=== PATIENT | male | born 1980 | race Caucasian/White ===

== ENCOUNTER 2017-01-22 04:34 | Emergency (ER) | payer BC ==
[2017-01-22] MEDS: Sodium Chloride 0.9% 10 ML Syringe FLUSH PRN ×4 (04:37→05:03)
[2017-01-22] MEDS ORDERED: Ticagrelor 90 MG Tab PO ONE (04:37)
[2017-01-22] MEDS ORDERED: Famotidine 20 MG/2 ML SDV IVPUSH ONE (04:37)
[2017-01-22] MEDS ORDERED: Aspirin 81 MG Tab.Chew CHEW ONE (04:37)
--- NOTE | 2017-01-22 04:37 | EDM.PDOC ---
ED HPI GENERAL MEDICAL PROBLEM - General Chief Complaint: Chest Pain Stated Complaint: heart racing Time Seen by Provider: 01/22/17 04:37 Source of Information: Reports: Patient, Old Records ([facility] chart/EMR) History Limitations: Reports: No Limitations - History of Present Illness INITIAL COMMENTS - FREE TEXT/NARRATIVE: The patient was brought to the emergency room via transport vehicle from [facility] for evaluation of sudden onset tachycardia and 6/10 retrosternal chest pressure/ pounding with symptoms starting at about 4 AM this morning. The patient refused ambulance transfer at his workplace. The patient denies any dizziness, orthostasis, orthopnea, diaphoresis, paresthesias, recent decreased exercise tolerance, or any other anginal-type symptoms. He does have a distant history of probable PSVT as below, however no known previous history of hypertension, other cardiac disease, etc. He has not taken any medications for his symptoms to this point. No recent history of abdominal pain, heartburn, nausea, diarrhea , melena, gross hematochezia, or any food intolerance, including fatty foods, etc.. The patient also denies any recent fever, cough, wheezing, dyspnea, etc.. No history of recent headaches, visual changes, diplopia, change in mental status, or other change in neurological status. Onset: Today, Sudden Onset Date: 01/22/17 Onset Time: 04:00 Duration: Constant Location: Reports: Chest. Denies: Head, Face, Neck, Abdomen, Back, Upper Extremity, Left, Upper Extremity, Right, Radiates to Quality: Reports: Same as Previous Episode, Other (As above) Severity: Moderate Improves with: Reports: None Worsens with: Reports: None Context: Reports: Other (As above) Associated Symptoms: Reports: Chest Pain. Denies: Cough, cough w sputum, Diaphoresis, Fever/Chills, Headaches, Loss of Appetite, Malaise, Nausea/Vomiting , Seizure, Shortness of Breath, Syncope, Weakness Treatments FLOAT TENDER: Reports: Other (see below) (None) Middle Chest Pain Score (Numeric/FACES): 6 - Related Data Allergies Allergy/AdvReac Type Severity Reaction Status Date / Time acetaminophen Allergy Excitabilit Verified 01/22/17 04:46 [From Darvocet-N 100] y propoxyphene Allergy Excitabilit Verified 07/25/17 04:46 [From Darvocet-N 100] y Past Medical History HEENT History: Reports: Impaired Vision, Retinal Detachment, Other (See Below). Denies: Allergic Rhinitis, Cataract, Glaucoma, Hard of Hearing, Macular Degeneration Other HEENT History: Patient wears reading glasses, history of possible diabetic retinopathy with bilateral retinal detachments requiring laser treatment as below Cardiovascular History: Reports: Arrhythmia, Heart Failure, Other (See Below). Denies: Afib, Aneurysm, Blood Clots/VTE/DVT, CAD, Heart Murmur, High Cholesterol , Hypertension, ID, Syncope Other Cardiovascular History: History of probable PSVT in 2001, complete right bundle branch block, short IL interval, borderline CHF, and d-dimer elevation on 07/16/12 with no apparent further workup despite transfer to [place] at that time? Respiratory History: Reports: None. Denies: Asthma, COPD, Intubation, Previous , PE, Pneumothorax, Sleep Apnea Gastrointestinal History: Reports: None. Denies: Celiac Disease, Cholelithiasis , Chronic Constipation, Chronic Diarrhea, Gastritis, GERD, GI Bleed, Hepatitis, Hiatal Hernia, Inflammatory Bowel Disease, Irritable Bowel Syndrome, Jaundice, Pancreatitis Genitourinary History: Reports: Chronic Renal Insuffiency, Diabetic Nephropathy. Denies: Acute Renal Failure, Dialysis, Prostate Disorder, Renal Calculus, STD, Urinary Incontinence, UTI, Recurrent Musculoskeletal History: Reports: Fracture, Other (See Below). Denies: Arthritis, Back Pain, Chronic, Gout, Neck Pain, Chronic, Osteoarthritis, RA, SLE Other Musculoskeletal History: Left forearm fracture requiring surgery as below Neurological History: Reports: None. Denies: Cerebral Aneurysms, Concussion, CVA, Headaches, Chronic, Head Trauma, Migraines, Neuropathy, Diabetic, Neuropathy, Peripheral, Parkinson's, Seizure, TIA Psychiatric History: Reports: None. Denies: Abuse, Victim of, ADD, ADHD, Addiction, Anxiety, Depression, Psych Hospitalization(s), PTSD, Suicide Attempt , Suicidal Ideation Endocrine/Metabolic History: Reports: Diabetes, Type I, IDDM. Denies: Hypothyroidism Hematologic History: Reports: None. Denies: Anemia, Blood Transfusion(s), Iron Deficiency Immunologic History: Reports: None. Denies: AIDS, HIV, SLE Oncologic (Cancer) History: Reports: None. Denies: Basal Cell Carcinoma, Leukemia, Lymphoma, Malignant Melanoma, Non-Hodgkin's Lymphoma, Squamous Cell Carcinoma Dermatologic History: Reports: None. Denies: Eczema, Psoriasis - Infectious Disease History Infectious Disease History: Reports: None. Denies: C-Difficile, Chicken Pox, Measles, Meningitis, Mononucleosis, MRSA, Mumps, Rheumatic Fever, Rubella, Scarlet Fever, Shingles, VRE - Past Surgical History Head Surgeries/Procedures: Reports: None HEENT Surgical History: Reports: Detached Retina, Laser Surgery, Oral Surgery. Denies: Adenoidectomy, Cataract Surgery, Myringotomy w Tube(s), Tonsillectomy Cardiovascular Surgical History: Reports: None. Denies: Cardiac Ablation, Varicose, Vascular Surgery Respiratory Surgical History: Reports: None. Denies: Thoracentesis GI Surgical History: Reports: None. Denies: Appendectomy, Cholecystectomy, Colonoscopy, EGD, Hernia, Abdominal, Hernia, Inguinal, Hernia Repair/Other Male Surgical History: Reports: Circumcision, Other (See Below). Denies: Vasectomy Other Male Surgeries/Procedures: Circumcision as an infant Endocrine Surgical History: Reports: None Neurological Surgical History: Reports: None. Denies: C-Spine, Discectomy, Laminectomy, Lumbar Spine, Vertebroplasty Musculoskeletal Surgical History: Reports: Arthroscopic Knee, Arthroscopic Procedure, ORIF, Other (See Below). Denies: Carpal Tunnel, Ganglion Cyst Other Musculoskeletal Surgeries/Procedures:: bilateral arthroscopic knee surgery with probable meniscal repairs in 2006, ORIF of her right forearm fracture on 04/15/12 Oncologic Surgical History: Reports: None Dermatological Surgical History: Reports: None - Past Imaging History Past Imaging History: Reports: Stress Testing (Cardiac stress test in 2001) Social & Family History - Family History HEENT: Reports: None Cardiac: Reports: None. Denies: Afib, AICD, Aneurysm, Arrhythmia, Blood Clots/ VTE/DVT, CAD, High Cholesterol, Hypertension, ID, Syncope Respiratory: Reports: None. Denies: Asthma, COPD, PE, Pneumothorax, Sleep Apnea GI: Reports: None. Denies: Celiac Disease, Cholelithiasis, Colon Polyps, GERD, GI bleed, Inflammatory Bowel Disease, Irritable Bowel Syndrome, PUD : Reports: None. Denies: Dialysis, Renal Calculus, Renal Disease/ Insufficiency OBGYN: Reports: None Musculoskeletal: Reports: None. Denies: Gout, RA, SLE Neurological: Reports: None. Denies: Alzheimers Disease, Cerebral Aneurysms, CVA, Dementia, Migraines, MS, Parkinson's, Seizure, TIA Psychiatric: Reports: None. Denies: Abuse, Victim of, ADD, ADHD, Anxiety, Depression, Psych Hospitalization(s), PTSD, Suicide Attempt Endocrine/Metabolic: Reports: Diabetes, type II, IDDM, Other (See Below). Denies: Hypothyroidism Other Endocrine/Metabolic Family History: IDDM in maternal and paternal grandmothers Hematologic: Reports: None. Denies: Anemia, Transfusion Reaction Immunologic: Reports: None. Denies: AIDS, HIV, SLE Dermatologic: Reports: None. Denies: Eczema, Psoriasis Oncologic: Reports: None. Denies: Colon, Hodgkin's Lymphoma, Leukemia, Lymphoma , Non-Hodgkin's Lymphoma, Prostate, Skin - Tobacco Use Smoking Status *Q: Current Every Day Smoker Tobacco Use Within Last Twelve Months: Cigarettes Years of Tobacco use: 18 Packs/Tins Daily: 1 (Started smoking at age 18 with maximum use 2 packs per day) Used Tobacco, but Quit: No Smoking Cessation Information Provided To Patient: Yes Second Hand Smoke Exposure: No Second Hand Smoke Education Provided: No - Caffeine Use Caffeine Use: Reports: Soda (6 sodas per day). Denies: Coffee, Energy Drinks, Tea - Alcohol Use Alcohol Use History: Yes Days Per Week of Alcohol Use: 0 (No previous DWIs, problems with alcohol abuse, etc.) Number of Drinks Per Day: 6 (Usually beer about once per month) Total Drinks Per Week: 0 Alcohol Use in Last Twelve Months: Yes Alcohol Use Frequency: Socially - Recreational Drug Use Recreational Drug Use: No Drug Use in Last 12 Months: No Recreational Drug Type: Denies: Amphetamines (Speed), Cocaine, Heroin, Inhalants (Glues, Solvents, Aerosols), LSD (Acid), Marijuana/Hashish, Methamphetamine, Morphine - Living Situation & Occupation Living situation: Reports: Single (No children), Alone 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 Denies: Fever, Chills, Weakness, Fatigue , Night Sweats, Diaphoresis, Decreased Appetite, Weight Loss HEENT: Reports: No Symptoms. Denies: Contact Lenses, Dental Pain, Ear Pain, Glasses, Throat Pain, Vertigo Respiratory: Reports: No Symptoms. Denies: Shortness of Breath, Wheezing, Pleuritic Chest Pain, Cough Cardiovascular: Reports: Chest Pain, Blood Pressure Problem, Palpitations. Denies: Dyspnea on Exertion, Edema, Lightheadedness, Orthopnea, Syncope Endocrine: Reports: High Glucose GI/Abdominal: Reports: No Symptoms. Denies: Abdominal Pain, Anorexia, Black Stool, Bloody Stool, Constipation, Diarrhea, Decreased Appetite, Difficulty Swallowing, Distension, Flatus, Hematochezia, Melena, Mucous in Stool, Nausea, Vomiting : Reports: No Symptoms. Denies: Dysuria, Flank Pain, Frequency, Hematuria, Incontinence, Pain, Urinary Retention Musculoskeletal: Reports: No Symptoms. Denies: Neck Pain, Shoulder Pain, Arm Pain, Back Pain, Leg Pain Skin: Reports: No Symptoms. Denies: Diaphoresis, Wound Neurological: Reports: No Symptoms. Denies: Confusion, Dizziness, Headache, Numbness, Paresthesia, Seizure, Syncope, Tingling, Weakness Psychiatric: Reports: No Symptoms. Denies: Agitation, Anxiety, Depression, Hallucinations, Suicidal Ideation Hematologic/Lymphatic: Reports: No Symptoms Immunologic: Reports: No Symptoms ED EXAM, GENERAL - Physical Exam Exam: See Below Exam Limited By: No Limitations General Appearance: Alert, WD/WN, No Apparent Distress Eye Exam: Bilateral Eye: EOMI, Normal Inspection (No nystagmus), PERRL Ears: Normal External Exam, Normal Canal, Hearing Grossly Normal, Normal TMs Nose: Normal Inspection, Normal Mucosa, No Blood Throat/Mouth: Normal Inspection, Normal Lips, Normal Teeth, Normal Gums, Normal Oropharynx, Normal Voice, No Airway Compromise. No: Dysphagia, Perioral Cyanosis Head: Atraumatic, Normocephalic. No: Facial Swelling, Facial Tenderness, Sinus Tenderness Neck: Normal Inspection, Supple, Non-Tender, Full Range of Motion. No: Carotid Bruit, Lymphadenopathy (L), Lymphadenopathy (R), Thyromegaly Respiratory/Chest: No Respiratory Distress, Lungs Clear, Normal Breath Sounds, No Accessory Muscle Use, Chest Non-Tender. No: Pleural Rub, Retractions Cardiovascular: Normal Peripheral Pulses, No Edema, No Gallop, No JVD, No Murmur , No Rub, Tachycardia (Regular rhythm). No: Gallop/S3, Gallop/S4, Friction Rub Peripheral Pulses: 4+: Radial (L), Radial (R), Dorsalis Pedis (L), Dorsalis Pedis (R) GI/Abdominal: Normal Bowel Sounds, Soft, Non-Tender, No Organomegaly, No Distention, No Abnormal Bruit, No Mass, Pelvis Stable. No: Guarding (Male) Exam: Deferred Rectal (Males) Exam: Deferred Back Exam: Normal Inspection, Full Range of Motion. No: CVA Tenderness (L), CVA Tenderness (R), Muscle Spasm Extremities: Normal Inspection, Normal Range of Motion, Non-Tender, No Pedal Edema, Normal Capillary Refill. No: Suzie's Sign Neurological: Alert, Oriented, CN II-XII Intact, Normal Cognition, Normal Gait, Normal Reflexes (Negative Babinski's), No Motor/Sensory Deficits Psychiatric: Normal Affect, Normal Mood Skin Exam: Warm, Dry, Intact, Normal Color, No Rash. No: Diaphoretic, Wound/ Incision Lymphatic: No Adenopathy EKG INTERPRETATION EKG Date: 01/22/17 Time: 05:05 Rhythm: Other (Sinus tachycardia) Rate (Beats/Min): 105 [place]: Normal (Neutral versus left cardiac axis) P-Wave: Enlarged (Mild diffuse biphasic P waves with poor R-wave progression in the anterior leads) QRS: Normal (QRS interval 0.09 seconds representing resolution of previous complete right bundle branch block) ST-T: Normal (T inversion of leads V1 and lead 3 with new T-wave inversion in lead 3) QT: Normal IL/PQ Interval: 0.15 seconds representing resolution of previous short IL interval Comparison: Change From Previous EKG (As above since last EKG on 07/16/12) EKG Interpretation Comments: 1. No acute ischemic changes 2. Sinus tachycardia Course - Vital Signs Last Recorded V/S: Last Vital Signs Temp 37.1 C 01/22/17 05:24 Pulse 97 01/22/17 07:06 Resp 17 01/22/17 07:06 BP 183/105 H 01/22/17 05:52 Pulse Ox 100 01/22/17 05:52 Vital Signs - 24 hr 01/22/17 01/22/17 01/22/17 04:35 04:45 04:54 Temperature [ Temporal] Temperature [ 36.9 C Tympanic] Pulse, 112 H Peripheral Pulse, 204 H 198 H Peripheral [ Right Pulse Oximetry] Respiratory 14 16 Rate Blood Pressure 173/106 H Blood Pressure 157/114 H 152/111 H [Left Upper Arm ] O2 Sat by Pulse 95 98 Oximetry 01/22/17 01/22/17 01/22/17 05:22 05:24 05:30 Temperature [ 37.1 C 37.1 C Temporal] Temperature [ Tympanic] Pulse, Peripheral Pulse, 102 H 103 H 104 H Peripheral [ Right Pulse Oximetry] Respiratory 21 H 21 H 22 H Rate Blood Pressure Blood Pressure 171/105 H 161/99 H 172/106 H [Left Upper Arm ] O2 Sat by Pulse 100 100 100 Oximetry 01/22/17 01/22/17 01/22/17 05:48 05:52 06:15 Temperature [ Temporal] Temperature [ Tympanic] Pulse, Peripheral Pulse, 102 H 102 H 106 H Peripheral [ Right Pulse Oximetry] Respiratory 23 H 21 H 19 Rate Blood Pressure Blood Pressure 157/100 H 183/105 H [Left Upper Arm ] O2 Sat by Pulse 100 100 Oximetry 01/22/17 01/22/17 01/22/17 06:21 06:36 06:51 Temperature [ Temporal] Temperature [ Tympanic] Pulse, Peripheral Pulse, 105 H 99 97 Peripheral [ Right Pulse Oximetry] Respiratory 20 17 18 Rate Blood Pressure Blood Pressure [Left Upper Arm ] O2 Sat by Pulse Oximetry 01/22/17 07:06 Temperature [ Temporal] Temperature [ Tympanic] Pulse, Peripheral Pulse, 97 Peripheral [ Right Pulse Oximetry] Respiratory 17 Rate Blood Pressure Blood Pressure [Left Upper Arm ] O2 Sat by Pulse Oximetry - Orders/Labs/Meds Orders: Active Orders 24 hr Category Date Time Status Cardiac Monitoring [RC] . DIRECTED Care 01/22/17 04:38 Active EKG Documentation Completion [RC] ASDIRECTED Care 01/22/17 04:38 Active Oxygen Therapy, ED [RC] CONTINUOUS Care 01/22/17 04:38 Active Peripheral IV Care [RC] . DIRECTED Care 01/22/17 04:38 Active Pulse Oximetry [RC] CONTINUOUS Care 01/22/17 04:38 Active Up With Assistance [RC] PFP Care 01/22/17 04:38 Active Vital Signs [RC] PFP Care 01/22/17 04:38 Active Nothing per Oral Now Diet [DIET] Diet 01/22/17 Breakfast Active Chest 1V Frontal [CR] Stat Exams 01/22/17 04:38 Taken FREE T3 [REF] Routine Lab 01/22/17 04:40 Received Sodium Chloride 0.9% [Saline Flush] Med 01/22/17 04:37 Active 10 ml FLUSH ASDIRECTED PRN Obtain Past Medical Record [OM.PC] Urgent Oth 01/22/17 04:38 Active Peripheral IV Insertion Adult [OM.PC] Stat Oth 01/22/17 04:38 Ordered Resuscitation Status Stat Resus Stat 01/22/17 04:37 Ordered Medication Orders Sodium Chloride (Saline Flush) 10 ml FLUSH ASDIRECTED PRN PRN Reason: Keep Vein Open Last Admin: 01/22/17 05:03 Dose: 10 ml Admin: 01/22/17 04:49 Dose: 10 ml Admin: 01/22/17 04:39 Dose: 10 ml Admin: 01/22/17 04:37 Dose: 10 ml Admin: 01/22/17 04:37 Dose: 10 ml Labs: Laboratory Tests 01/22/17 01/22/17 01/22/17 Range/Units 04:40 04:40 04:40 WBC 11.7 H (4.0-10.2) K/uL RBC 3.93 L (4.33-5.41) M/uL Hgb 12.7 L (13.1-16.8) g/dL Hct 35.8 L (39.0-49.0) % MCV 91.1 (84.0-98.0) fL MCH 32.3 (28.2-33.3) pg MCHC 35.5 (31.7-36.0) g/dL RDW 11.8 (11.2-14.1) % Plt Count 289 (150-350) K/uL Neut % (Auto) 64.4 (45.0-80.0) % Lymph % (Auto) 22.1 (10.0-50.0) % [place] % (Auto) 8.4 (2.0-14.0) % Eos % (Auto) 4.4 (0.0-5.0) % Baso % (Auto) 0.7 (0.0-2.0) % Neut # (Auto) 7.55 H (1.40-7.00) K/uL Lymph # (Auto) 2.59 (0.50-3.50) K/uL [place] # (Auto) 0.99 (0.00-1.00) K/uL Eos # (Auto) 0.52 H (0.00-0.50) K/uL Baso # (Auto) 0.08 (0.00-0.20) K/uL PT 9.8 (9.8-11.7) SEC INR 0.9 APTT 26.5 (23.5-30.0) SEC D-Dimer, Quantitative < 100 (0-400) ng/mL Sodium (136-145) mmol/L Potassium (3.5-5.1) mmol/L Chloride (98-107) mmol/L Carbon Dioxide (21.0-32.0) mmol/L BUN (7-18) mg/dL Creatinine (0.51-1.17) mg/dL Est Cr Clr Drug Dosing mL/min Estimated GFR (MDRD) mL/min Glucose (74-106) mg/dL Lactic Acid (0.4-2.0) mmol/L Uric Acid (2.6-7.2) mg/dL Calcium (8.5-10.1) mg/dL Magnesium (1.8-2.4) mg/dL Total Bilirubin (0.2-1.0) mg/dL AST (15-37) U/L ALT (12-78) U/L Alkaline Phosphatase (46-116) IU/L Creatine Kinase (26-308) U/L Creatine Kinase Index (0.0-2.5) % CK-MB (CK-2) (0.00-3.60) ng/mL Troponin I (0.000-0.056) ng/mL [id number] Pept (0-125) pg/mL Total Protein (6.4-8.2) g/dL Albumin (3.4-5.0) g/dL Free T4 (0.76-1.46) ng/dL TSH, Ultra Sensitive (0.358-3.740) mIU/mL 01/22/17 01/22/17 01/22/17 Range/Units 04:40 04:40 04:40 WBC (4.0-10.2) K/uL RBC (4.33-5.41) M/uL Hgb (13.1-16.8) g/dL Hct (39.0-49.0) % MCV (84.0-98.0) fL MCH (28.2-33.3) pg MCHC (31.7-36.0) g/dL RDW (11.2-14.1) % Plt Count (150-350) K/uL Neut % (Auto) (45.0-80.0) % Lymph % (Auto) (10.0-50.0) % [place] % (Auto) (2.0-14.0) % Eos % (Auto) (0.0-5.0) % Baso % (Auto) (0.0-2.0) % Neut # (Auto) (1.40-7.00) K/uL Lymph # (Auto) (0.50-3.50) K/uL [place] # (Auto) (0.00-1.00) K/uL Eos # (Auto) (0.00-0.50) K/uL Baso # (Auto) (0.00-0.20) K/uL PT (9.8-11.7) SEC INR APTT (23.5-30.0) SEC D-Dimer, Quantitative (0-400) ng/mL Sodium 140 (136-145) mmol/L Potassium 4.5 (3.5-5.1) mmol/L Chloride 103 (98-107) mmol/L Carbon Dioxide 24.7 (21.0-32.0) mmol/L BUN 37 H (7-18) mg/dL Creatinine 1.73 H (0.51-1.17) mg/dL Est Cr Clr Drug Dosing 60.95 mL/min Estimated GFR (MDRD) 45 mL/min Glucose 246 H (74-106) mg/dL Lactic Acid 0.9 (0.4-2.0) mmol/L Uric Acid 4.3 (2.6-7.2) mg/dL Calcium 8.8 (8.5-10.1) mg/dL Magnesium 1.7 L (1.8-2.4) mg/dL Total Bilirubin 0.3 (0.2-1.0) mg/dL AST 16 (15-37) U/L ALT 34 (12-78) U/L Alkaline Phosphatase 114 (46-116) IU/L Creatine Kinase 107 (26-308) U/L Creatine Kinase Index 2.1 (0.0-2.5) % CK-MB (CK-2) 2.20 (0.00-3.60) ng/mL Troponin I 0.000 (0.000-0.056) ng/mL [id number]-[id number] Pept 119 (0-125) pg/mL Total Protein 7.5 (6.4-8.2) g/dL Albumin 3.7 (3.4-5.0) g/dL Free T4 0.97 (0.76-1.46) ng/dL TSH, Ultra Sensitive 4.034 H (0.358-3.740) mIU/mL Free T3 pending Meds: Medications Generic Name Dose Route Start Last Admin Trade Name Freq PRN Reason Stop Dose Admin Sodium Chloride 10 ml 01/22/17 04:37 01/22/17 05:03 Saline Flush FLUSH 10 ml ASDIRECTED PRN Administration Keep Vein Open Discontinued Medications Generic Name Dose Route Start Last Admin Trade Name Freq PRN Reason Stop Dose Admin Adenosine 6 mg 01/22/17 04:39 01/22/17 04:47 Adenocard IVPUSH 01/22/17 04:40 6 mg NOW ONE Administration Aspirin 324 mg 01/22/17 04:37 01/22/17 04:47 Aspirin CHEW 01/22/17 04:38 324 mg ONETIME ONE Administration Diltiazem HCl 10 mg 01/22/17 05:03 01/22/17 05:09 Diltiazem IVPUSH 01/22/17 05:04 10 mg ONETIME ONE Administration Diltiazem HCl 180 mg 01/22/17 05:27 01/22/17 05:41 Cardizem Cd PO 01/22/17 05:28 180 mg ONETIME ONE Administration Diltiazem HCl 10 mg 01/22/17 05:53 01/22/17 06:02 Diltiazem IVPUSH 01/22/17 05:54 10 mg ONETIME ONE Administration Famotidine 40 mg 01/22/17 04:37 01/22/17 04:51 Pepcid IVPUSH 01/22/17 04:38 40 mg ONETIME ONE Administration Metoprolol Tartrate 2.5 mg 01/22/17 04:49 01/22/17 04:54 Lopressor IVPUSH 01/22/17 04:50 2.5 mg ONETIME ONE Administration Ticagrelor 180 mg 01/22/17 04:37 01/22/17 04:48 Brilinta PO 01/22/17 04:38 180 mg ONETIME ONE Administration - Radiology Interpretation Free Text/Narrative:: manager monitoring shows probable PSVT with maximal heart rate of 204 with majority of heart rate in the 200s until medical treatment subsequent normal sinus rhythm and mild sinus tachycardia in the 100s with no other ectopy or arrhythmia Chest x-ray, portable, shows evidence of borderline cardiomegaly with no CHF, pulmonary infiltrates, pneumothorax, etc. Departure - Departure Time of Disposition: 07:30 Disposition: Against Medical Advice 07 Condition: Serious Clinical Impression: PSVT (paroxysmal supraventricular tachycardia), Hypertension, IDDM (insulin dependent diabetes mellitus), Diabetic nephropathy, Hypothyroidism, Hypomagnesemia Instructions: Nonspecific Chest Pain, [id number], Paroxysmal Supraventricular Tachycardia, [id number], Hypertension, [id number] Referrals: PCP,None [Primary Care Provider] - Forms: ED Department Discharge Additional Instructions: 1. Strict no driving, fall precautions, injury precautions, etc. until released by regular provider or other physician 2. You may not return to work until released by regular provider 3. Follow-up with your regular provider EVELIO 4. Stop all tobacco use EVELIO as directed/per provided information and consider contacting [employer]uit [employer], etc.. - Problem List & Annotations (1) PSVT (paroxysmal supraventricular tachycardia) SNOMED Code(s): 29162822 Code(s): I47.1 - SUPRAVENTRICULAR TACHYCARDIA Status: Acute Priority: High Current Visit: Yes Onset Date: 01/22/17 Annotation/Comment:: Severe PSVT on arrival with aggressive medical therapy as above. Despite our strong recommendations to the patient and his parents, the patient refuses to be admitted in observation status for further close observation of his heart rhythm , chest pain, and hypertension. The patient planned to go back to [facility] and drive home, although this was a danger to others. I did call the [place] police at 06:00 a.m., who discussed this further with the patient's father, who does agree to accept full responsibility for the patient, including strict no driving , etc. until released by his regular provider. The patient did sign a medical release of today's the emergency room evaluation for his physician. He is well aware of the significant risk of stroke, , ID, etc., including the risk of driving to himself and others. Patient's father did come to the emergency room and accept full responsibility, including driving the patient home and to his regular provider later today. The patient was chest pain free at discharge. Note some mild leukocytosis possibly secondary to stress reaction (2) Hypertension SNOMED Code(s): 97126796 Code(s): I10 - ESSENTIAL (PRIMARY) HYPERTENSION Status: Acute Priority: High Current Visit: Yes Onset Date: 01/22/17 Annotation/Comment:: Severely elevated blood pressure somewhat refractory to therapy. Patient is aware that he does risk possible stroke, etc. by leaving AMA. He plans to see his regular provider later today Qualifiers: Hypertension type: essential hypertension Qualified Code(s): I10 - Essential (primary) hypertension (3) Diabetic nephropathy Status: Chronic Priority: Medium Current Visit: Yes Annotation/Comment:: Continue to observe closely by his regular provider Qualifiers: Diabetes mellitus type: type 1 Qualified Code(s): E10.21 - Type 1 diabetes mellitus with diabetic nephropathy (4) Hypomagnesemia SNOMED Code(s): 484113492 Code(s): E83.42 - HYPOMAGNESEMIA Status: Acute Priority: Medium Current Visit: Yes Onset Date: 01/22/17 Annotation/Comment:: Follow-up with regular provider recommended (5) Hypothyroidism SNOMED Code(s): 26757393 Code(s): E03.9 - HYPOTHYROIDISM, UNSPECIFIED Status: Acute Priority: Medium Current Visit: Yes Onset Date: 01/22/17 Annotation/Comment:: Follow -up with regular provider with consideration of low-dose thyroid supplementation versus repeat TSH in 4 weeks. Free T3 and free T4 were ordered at patient discharge. Free T4 was normal with free T3 pending at this time Qualifiers: Hypothyroidism type: acquired Qualified Code(s): E03.9 - Hypothyroidism, unspecified (6) IDDM (insulin dependent diabetes mellitus) SNOMED Code(s): 67430855 Code(s): E11.9 - TYPE 2 DIABETES MELLITUS WITHOUT COMPLICATIONS; Z79.4 - [facility] (CURRENT) USE OF INSULIN Status: Chronic Priority: Medium Current Visit: Yes Annotation/Comment:: Stable by patient history, although patient does not take home Accu-Cheks - Problem List Review Problem List Initiated/Reviewed/Updated: Yes - My Orders Last 24 Hours: My Active Orders 01/22/17 04:37 Sodium Chloride 0.9% [Saline Flush] 10 ml FLUSH ASDIRECTED PRN Resuscitation Status Stat 01/22/17 04:38 Cardiac Monitoring [RC] . DIRECTED EKG Documentation Completion [RC] ASDIRECTED Oxygen Therapy, ED [RC] CONTINUOUS Peripheral IV Care [RC] . DIRECTED Pulse Oximetry [RC] CONTINUOUS Up With Assistance [RC] PFP Vital Signs [RC] PFP Chest 1V Frontal [CR] Stat Obtain Past Medical Record [OM.PC] Urgent Peripheral IV Insertion Adult [OM.PC] Stat 01/22/17 04:40 FREE T3 [REF] Routine 01/22/17 Breakfast Nothing per Oral Now Diet [DIET] - Assessment/Plan Last 24 Hours: My Active Orders 01/22/17 04:37 Sodium Chloride 0.9% [Saline Flush] 10 ml FLUSH ASDIRECTED PRN Resuscitation Status Stat 01/22/17 04:38 Cardiac Monitoring [RC] . DIRECTED EKG Documentation Completion [RC] ASDIRECTED Oxygen Therapy, ED [RC] CONTINUOUS Peripheral IV Care [RC] . DIRECTED Pulse Oximetry [RC] CONTINUOUS Up With Assistance [RC] PFP Vital Signs [RC] PFP Chest 1V Frontal [CR] Stat Obtain Past Medical Record [OM.PC] Urgent Peripheral IV Insertion Adult [OM.PC] Stat 01/22/17 04:40 FREE T3 [REF] Routine 01/22/17 Breakfast Nothing per Oral Now Diet [DIET] Assessment:: As above Plan: As above. Extensive precautions were given to the patient and his father. Patient did leave AMA.
[2017-01-22] MEDS ORDERED: Adenosine 6 MG/2 ML SDV IVPUSH ONE (04:39)
[2017-01-22] MEDS ORDERED: Metoprolol Tartrate 5 MG/5 ML SDV IVPUSH ONE (04:49)
[2017-01-22] MEDS ORDERED: Diltiazem 25 MG/5 ML SDV IVPUSH ONE ×2 (05:03→05:53)
[2017-01-22] MEDS ORDERED: Diltiazem 180 MG Cap.CD PO ONE (05:27)
[2017-01-22 05:53] VITALS: BP 183/105
== END 2017-01-22 07:30 | disposition left against medical advice (07) ==
LOC: LL.ED 04:34
DX: I47.1 Supraventricular tachycardia (principal); I13.0 Hypertensive heart and chronic kidney disease with heart failure and stage 1 through stage 4 chronic kidney disease, or unspecified chronic kidney disease; E10.22 Type 1 diabetes mellitus with diabetic chronic kidney disease; N18.9 Chronic kidney disease, unspecified; I50.9 Heart failure, unspecified; F17.210 Nicotine dependence, cigarettes, uncomplicated; E03.9 Hypothyroidism, unspecified; E83.42 Hypomagnesemia; Z88.5 Allergy status to narcotic agent; Z79.899 Other long term (current) drug therapy
CPT/HCPCS: 36415; 71010; 80053; 82550; 82553; 83605; 83735; 83880; 84439; 84443; 84481; 84484; 84550; 85025; 85379; 85610; 85730; 93005; 96374; 96375; 96376; 99285; A9270; J0153; J7050; J3490; S0028